=== PATIENT | male | born 1950 | race Caucasian/White ===

== ENCOUNTER 2021-06-25 21:00 | Inpatient (IN) | payer MEDICARE ==
[~2021-06-25] VITALS: Ht 182.9 cm; Wt 114.4 kg
[2021-06-25] MEDS ORDERED: ASPI81CH PO (21:17)
[2021-06-25] MEDS ORDERED: Metoprolol Succ25 MG PO (21:17)
[2021-06-25] MEDS ORDERED: LOSA25 PO (21:18)
[2021-06-25] MEDS ORDERED: AMLO5 PO (21:18)
[2021-06-25] MEDS ORDERED: ATOR10 PO (21:19)
[2021-06-25 21:40] LABS: BASOPHILS ABSOLUTE AUTO 0.01 K/mm3 (0.00-0.23); BASOPHILS PERCENT AUTO 0 % (0-2); EOSINOPHILS ABSOLUTE AUTO 0.05 K/mm3 (0.00-0.68); EOSINOPHILS PERCENT AUTO 1 % (0-6); Hemoglobin 14.8 g/dL (13.5-17.5); IMMATURE GRAN ABSOLUTE AUTO 0.02 K/mm3 (0.00-0.10); IMMATURE GRAN PERCENT AUTO 0 % (0-1); LYMPHOCYTES ABSOLUTE AUTO 1.25 K/mm3 (0.84-5.20); LYMPHOCYTES PERCENT AUTO 16 % (21-46); MONOCYTES ABSOLUTE AUTO 0.66 K/mm3 (0.16-1.47); MONOCYTES PERCENT AUTO 9 % (4-13); Mean Corpuscular HGB 28.7 pg (26.0-34.0); Mean Corpuscular HGB Conc 32.9 g/dL (31.5-36.5); Mean Corpuscular Volume 87 fL (80-100); Mean Platelet Volume 9.3 fL (9.1-12.4); NEUTROPHILS ABSOLUTE AUTO 5.73 K/mm3 (1.96-9.15); NEUTROPHILS PERCENT AUTO 74 % (41-73); Platelet Count 247 K/mm3 (150-400); RDW Coefficient Variation 13.6 % (11.7-14.2); RDW Standard Deviation 43.5 fL (35.1-46.3); Red Blood Cell Count 5.16 M/mm3 (4.30-5.90); White Blood Cell Count 7.72 K/mm3 (4.00-11.30)
[2021-06-25 21:59] LABS: Alanine Aminotransfer (ALT/SGP 59 U/L (12-78); Albumin, Blood 3.4 g/dL (3.4-5.0); Albumin/Globulin Ratio 0.8 (0.8-1.8); Alk Phos 105 U/L (50-136); Anion Gap 5 mmol/L (6-16); Aspartate Aminotrans (AST/SGOT 30 U/L (12-37); Bilirubin, Total 1.2 mg/dL (0.1-1.0); Blood Urea Nitrogen 19 mg/dL (8-24); Bun/Creatinine Ratio 15.6 (12.0-20.0); CO2, Blood 29 mmol/L (21-32); Calcium, Blood 9.4 mg/dL (8.5-10.1); Chloride, Blood 108 mmol/L (98-108); Creatinine, Blood 1.22 mg/dL (0.60-1.20); Globulin, Blood 4.2 g/dL (2.2-4.0); Glomerular Filtration Rate 59 (60-); Glucose, Blood 139 mg/dL (70-99); Potassium, Blood 3.8 mmol/L (3.5-5.5); Sodium, Blood 142 mmol/L (136-145); Total Protein, Blood 7.6 g/dL (6.4-8.2); Troponin I <0.015 ng/mL (0.000-0.040)
[2021-06-25 23:42] LABS: Source, Urine Clean Catch
[2021-06-25 23:44] LABS: Bilirubin, Urine Neg (Neg); Blood, Urine 2+ (Neg); Glucose Qualitative, Urine Neg (Neg); Ketones, Urine 2+ (Neg); Leukocyte Esterase, Urine Neg (Neg); Nitrite, Urine Neg (Neg); Protein, Urine 1+ (Neg); Specific Gravity, Urine 1.005 (1.003-1.022); Urobilinogen, Urine 1+ (Normal)
[2021-06-25 23:51] LABS: Appearance, Urine Clear (Clear); Color, Urine Yellow (P-Yellow)
[2021-06-25 23:52] LABS: Bacteria Few /hpf; Mucus Light (0-Heavy); Squamous Epithelial Cells Few /hpf (Few); White Blood Cells, Urine 0-2 /hpf (0-5)
[2021-06-26 02:45] LABS: SARS-Cov-2 (COVID-19) PCR, MMC NEGATIVE (NEGATIVE)
[2021-06-26] MEDS ORDERED: OMEP20ER PO (03:43)
[2021-06-26 07:46] LABS: BASOPHILS ABSOLUTE AUTO 0.02 K/mm3 (0.00-0.23); BASOPHILS PERCENT AUTO 0 % (0-2); EOSINOPHILS ABSOLUTE AUTO 0.02 K/mm3 (0.00-0.68); EOSINOPHILS PERCENT AUTO 0 % (0-6); Hematocrit 39.2 % (37.0-53.0); Hemoglobin 12.8 g/dL (13.5-17.5); IMMATURE GRAN ABSOLUTE AUTO 0.03 K/mm3 (0.00-0.10); IMMATURE GRAN PERCENT AUTO 0 % (0-1); LYMPHOCYTES ABSOLUTE AUTO 1.36 K/mm3 (0.84-5.20); LYMPHOCYTES PERCENT AUTO 18 % (21-46); MONOCYTES ABSOLUTE AUTO 0.73 K/mm3 (0.16-1.47); MONOCYTES PERCENT AUTO 10 % (4-13); Mean Corpuscular HGB 28.6 pg (26.0-34.0); Mean Corpuscular HGB Conc 32.7 g/dL (31.5-36.5); Mean Corpuscular Volume 88 fL (80-100); NEUTROPHILS ABSOLUTE AUTO 5.45 K/mm3 (1.96-9.15); NEUTROPHILS PERCENT AUTO 72 % (41-73); Platelet Count 214 K/mm3 (150-400); RDW Coefficient Variation 13.6 % (11.7-14.2); RDW Standard Deviation 43.9 fL (35.1-46.3); Red Blood Cell Count 4.47 M/mm3 (4.30-5.90); White Blood Cell Count 7.61 K/mm3 (4.00-11.30)
[2021-06-26 08:00] LABS: Anion Gap 2 mmol/L (6-16); Blood Urea Nitrogen 16 mg/dL (8-24); Bun/Creatinine Ratio 13.7 (12.0-20.0); CO2, Blood 29 mmol/L (21-32); Calcium, Blood 8.9 mg/dL (8.5-10.1); Chloride, Blood 112 mmol/L (98-108); Creatinine, Blood 1.17 mg/dL (0.60-1.20); Glomerular Filtration Rate >60 (60-); Glucose, Blood 123 mg/dL (70-99); Magnesium, Blood 2.2 mg/dL (1.6-2.4); Potassium, Blood 4.2 mmol/L (3.5-5.5); Sodium, Blood 143 mmol/L (136-145)
--- NOTE | 2021-06-26 08:02 | NUR ---
SHIFT SUMMARY: JORGE L IS A&OX4. VSS, NO ACUTE EVENTS SINCE ADMISSION THIS AM. HE DID HAVE AN EPISODE OF EMESIS OF APPROX 700 ML, AFTER WHICH HE REPORTED HIS PAIN DECREASED SIGNFICANTLY. HE IS NPO, IV TO L AC PATENT. HE IS LYING IN BED WITH HIS CALL LIGHT IN REACH. WILL REPORT TO DAY SHIFT RN.
--- NOTE | 2021-06-26 08:16 | NUR ---
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
--- NOTE | 2021-06-26 17:28 | NUR ---
SUMMARY PT HAD INCREASED NAUSEA AND ABDOMINAL CRAMPING THIS AFTERNOON AFTER CLEAR LIQUID DIET STARTED. MEDICATED PER ORDERS FOR NAUSEA BUT PT STILL REPORTS SOME PERSISTANT NAUSEA. NO EMESIS NOTED AT THIS TIME. REPORTS SOME ABDOMINAL CRAMPING BUT DENIED NEED FOR PAIN MEDS AT THIS TIME. USING URINAL. CALL LIGHT IN REACH. IV FLUIDS INFUSING PER ORDERS.
--- NOTE | 2021-06-27 07:56 | NUR ---
SUMMARY PT CONTINUED WITH PERIODS OF NAUSEA TONIGHT WTIH LARGE VOLUME BILE EMESIS. PT VERB ANTI EMETICS ONLY MINIMALLY EFFECTIVE.PT RECEIVED 2 TOTAL DOSES DILUADID 0.5 MG AND VERB MOST RECENT HIGHLY EFFECTIVE.PT VOIDING WITH NO OTHER C/O.
--- NOTE | 2021-06-27 10:31 | NUR ---
PT NPO FOR UGI AND SBFT
--- NOTE | 2021-06-27 10:57 | NUR ---
PT TO IMAGING
--- NOTE | 2021-06-27 13:17 | NUR ---
PT BACK FROM IMAGING. FEELS PRESSURE LIKE MAY PASS FLATUS OR HAVE BM. NAUSEATED AT THIS TIME. EMESIS BAG WITHIN REACH.
--- NOTE | 2021-06-27 13:56 | NUR ---
PT BP 163/91. PT WAS NPO THIS AM FOR UGI AND SBFT. ATTEMPTED TO ADMINISTER BLOOD PRESSURE MEDS UPON RETURN TO UNIT FOLLOWING PROCEDURE. PT REFUSED, STATING HE'D TAKE HIS BID MEDS THIS EVENING. I ENCOURAGED PT TO AT LEAST TAKE METOPROLOL, WHICH IS DAILY, BUT PT REFUSED, STATING HE'D WAIT UNTIL TOMORROW MORNING TO TAKE.
--- NOTE | 2021-06-27 15:06 | NUR ---
PT REPORTS FEELING IMPROVED AT THIS TIME REPORTED BURPED MULTIPLE TIMES, WHICH RELIEVED PRESSURE. DENYING N/V AND PAIN AT THIS TIME. CALL LIGHT IN REACH.
--- NOTE | 2021-06-27 17:17 | NUR ---
SUMMARY PT HAD UGI AND SBFT THIS SHIFT. VERY NAUSEATED UPON RETURNING AFTER IMAGING. PT HAD EPISODE OF MULTIPLE BURPS AND REPORTED FELT MUCH IMPROVED. IV FLUIDS INFUSING PER ORDERS. PT VOIDING AND PASSING FLATUS. DR STEVEN IN TO SEE PT THIS EVENING. GAVE ORDER THAT PT MAY HAVE SALTINES W/CLEAR LIQUIDS. CALL LIGHT IN REACH.
--- NOTE | 2021-06-28 03:08 | NUR ---
EMESIS PT HAD 400 EMESIS RIGHT AFTER FIRST DOSE OF DILAUDID BY THIS RN c EVENING MEDS, PT REPORTED FEELING BETTER AND DENIES NEED FOR ANTIEMETICS AT THAT TIME REPORTING HE WAS GOOD TO GO TO SLEEP. WHEN HE REQUESTED HALF THE DOSE OF PAIN MEDICATION HE GOT EARLIER REPORTING HIS ABD PAIN WAS GETTING UP THERE AGAIN (SEE EMAR), IT WAS DILUTED c NS AND ADMINISTERED SLOWER IN AN ATTEMPT TO AVOID ANY ADDITIONAL GI UPSET. ABOUT HALF WAY THROUGH THE ADMINISTRATION, THE PT ASKED IF IT WAS DIFFICULT TO PUSH THE MED IN TO WHICH I EDUCATED HIM ON THE REASON FOR GOING SLOWER. TO THIS HE REPORTED WANTING IT PUSHED FAST TO MAKE HIM THROW UP AGAIN REPORTING IT MAKES HIS ABD FEEL BETTER. A RESULT, THE PT WAS ABLE TO GET ANOTHER 400 ML EMESIS OUT. WILL DISCUSS c ONCOMING DAY RN AND CTM IN THE INTERIM.
--- NOTE | 2021-06-28 06:35 | NUR ---
SHIFT SUMMARY S/P ABD PAIN, A/O X4, VSS, 2 BOUTS OF EMESIS TONIGHT BOTH FOLLOWING PAIN MEDICATION ADMINISTRATION, PT REPORTS FEELING BETTER AFTERWARDS, EMESIS APPEARED TO BE JUST LIQUID/BILE c NO SOLID MATTER, FLUIDS INFUSING AT ORDERED RATE T/O SHIFT, NO ACUTE EVENTS THIS SHIFT. CALL LIGHT IN REACH, WILL CTM AND REPORT TO DAY RN.
--- NOTE | 2021-06-28 14:49 | NUR ---
Pre-Op teaching done. Pt verbalizes understanding. Patient confirms NPO status and agrees with scheduled surgery.
--- NOTE | 2021-06-28 18:16 | NUR ---
PT TO OR AT APROX 1820.
--- NOTE | 2021-06-28 19:30 | NUR ---
RECEIVED REPORT. PT IN OR AT THIS TIME.
--- NOTE | 2021-06-28 20:30 | NUR ---
PT RETURNED TO ROOM FROM OR. AWAKE, ALERT AND ORIENTED. DENIES PAIN AT THIS TIME. WANTS TO BEGIN INTRODUCING ICE CIPS/SIPS.
--- NOTE | 2021-06-29 01:11 | NUR ---
PT REPORTS PASSING FLATUS
--- NOTE | 2021-06-29 05:50 | NUR ---
SHIFT SUMMARY: JORGE L IS A&OX4. VSS, NO ACUTE EVENTS OVERNIGHT. THE PT WAS QUERIED ABOUT HIS BASELINE BLOOD PRESSURE, HE STATES THAT HIS SYSTOLIC BP TYPICALLY RUNS IN THE 170-180 RANGE AND THAT HIS PCP IS AWARE. HE DENIES PAIN AFTER SURGERY AND IS TOLERATING SIPS AND CHIPS WELL. IV TO LEFT AC PATENT, POWERGLIDE TO KARSON PATENT. HE IS LYING IN BED WITH THE CALL LIGHT IN REACH. WILL REPORT TO DAY SHIFT RN.
--- NOTE | 2021-06-29 17:00 | NUR ---
DISCHARGE SUMMARY PT A&OX4, VSS, DENIES PAIN, DENIES N&V AT THIS TIME, AMBULATING INDEPENDENTLY AND SAFELY IN ROOM/DRESSED SELF, LEFT FLOOR VIA WC WITH NG, WITH ALL PERSONAL POSSESSIONS INCLUDING DC PACKET. PT REP UNDERSTANDING DC INSTRUCTIONS INCLUDING OK TO SHOWER, NO TUB/JACUZZI, NO LIFTING >10 LBS, FU WITH PCP, AND SURGEON IN 2 WKS. 2 IVS DC'D.
== END 2021-06-29 16:49 | disposition home or self-care (01) | DRG 337 ==
LOC: ER 21:00 → SURS 21:01 → ER 06-26 01:53 → SURS 06-26 03:45
PROVIDERS: Physician Assistant; ADMIT Surgery
PROC: 0DNE4ZZ Release Large Intestine, Percutaneous Endoscopic Approach (ICD-10-PCS; principal; 2021-06-29)
PROC: 0DN84ZZ Release Small Intestine, Percutaneous Endoscopic Approach (ICD-10-PCS; 2021-06-29)
PROC: 0DNV4ZZ Release Mesentery, Percutaneous Endoscopic Approach (ICD-10-PCS; 2021-06-29)
PROC: 3E02340 Introduction of Influenza Vaccine into Muscle, Percutaneous Approach (ICD-10-PCS; 2021-06-29)
DX: K56.51 Intestinal adhesions [bands], with partial obstruction (principal); Z23 Encounter for immunization; K59.89 Other specified functional intestinal disorders; Z20.822 Contact with and (suspected) exposure to COVID-19; E66.9 Obesity, unspecified; E78.5 Hyperlipidemia, unspecified; I10 Essential (primary) hypertension; K58.9 Irritable bowel syndrome, unspecified; Z68.34 Body mass index [BMI] 34.0-34.9, adult; Z87.891 Personal history of nicotine dependence; Z98.890 Other specified postprocedural states; Z88.8 Allergy status to other drugs, medicaments and biological substances; Z79.82 Long term (current) use of aspirin; Z79.899 Other long term (current) drug therapy
CPT/HCPCS: 36415; 74019; 74177; 74240; 74248; 80048; 80053; 81001; 83605; 83690; 83735; 84484; 85025; 90686; 93005; 93010; 96374; 96375; 96376; 99285-25; A9270; C9113; G0008; G0378; J0330; J0690; J1100; J1170; J1885; J2270; J2405; J2550; J2704; J3010; J3411; J3475; J7030; J7042; J7120; Q9967; U0004

== ENCOUNTER 2021-08-04 20:58 | Emergency (ER) | payer MEDICARE ==
[~2021-08-04] VITALS: Ht 182.9 cm; Wt 108.9 kg
[~2021-08-04 20:58] MED LIST: AMLO5 PO; ASPI81CH PO; ATOR10 PO; LOSA25 PO; Metoprolol Succ25 MG PO; OMEP20ER PO
[2021-08-04 23:25] LABS: BASOPHILS ABSOLUTE AUTO 0.04 K/mm3 (0.00-0.23); BASOPHILS PERCENT AUTO 0 % (0-2); EOSINOPHILS ABSOLUTE AUTO 0.24 K/mm3 (0.00-0.68); EOSINOPHILS PERCENT AUTO 2 % (0-6); Hematocrit 44.2 % (37.0-53.0); Hemoglobin 14.9 g/dL (13.5-17.5); IMMATURE GRAN ABSOLUTE AUTO 0.06 K/mm3 (0.00-0.10); IMMATURE GRAN PERCENT AUTO 1 % (0-1); LYMPHOCYTES ABSOLUTE AUTO 1.81 K/mm3 (0.84-5.20); LYMPHOCYTES PERCENT AUTO 17 % (21-46); MONOCYTES PERCENT AUTO 8 % (4-13); Mean Corpuscular HGB 28.8 pg (26.0-34.0); Mean Corpuscular HGB Conc 33.7 g/dL (31.5-36.5); Mean Corpuscular Volume 86 fL (80-100); Mean Platelet Volume 9.3 fL (9.1-12.4); NEUTROPHILS ABSOLUTE AUTO 7.56 K/mm3 (1.96-9.15); NEUTROPHILS PERCENT AUTO 72 % (41-73); Platelet Count 285 K/mm3 (150-400); RDW Coefficient Variation 13.9 % (11.7-14.2); RDW Standard Deviation 43.3 fL (35.1-46.3); Red Blood Cell Count 5.17 M/mm3 (4.30-5.90); White Blood Cell Count 10.51 K/mm3 (4.00-11.30)
[2021-08-04 23:33] LABS: Albumin, Blood 3.5 g/dL (3.4-5.0); Albumin/Globulin Ratio 0.8 (0.8-1.8); Bilirubin, Total 0.4 mg/dL (0.1-1.0); Calcium, Blood 9.5 mg/dL (8.5-10.1); Creatinine, Blood 1.47 mg/dL (0.60-1.20); Globulin, Blood 4.3 g/dL (2.2-4.0); Potassium, Blood 4.5 mmol/L (3.5-5.5); Total Protein, Blood 7.8 g/dL (6.4-8.2)
[2021-08-05] MEDS ORDERED: MAGCIT300 PO (01:35)
== END 2021-08-05 02:55 | disposition home or self-care (01) ==
LOC: ER 20:58
PROVIDERS: Physician Assistant
DX: K59.00 Constipation, unspecified (principal); I10 Essential (primary) hypertension; Z88.8 Allergy status to other drugs, medicaments and biological substances; Z79.82 Long term (current) use of aspirin; Z79.899 Other long term (current) drug therapy; Z87.891 Personal history of nicotine dependence
CPT/HCPCS: 74177; 80053; 83690; 85025; 99284-25; A9270; Q9967